=== PATIENT | female | born 1995 | race Caucasian/White ===

== ENCOUNTER → 2017-01-08 | Outpatient (REF) | payer OTHER ==
[~2017-01-08] MED LIST: LEVA750T PO; MAGICMW MT; MUCI600T34 PO; OSEL75CA PO; OSEL75CA2 PO; PROA1AER INH; ZOFR4TAB3 PO
== END ==
LOC: M SFHCLERA 19:31
PROVIDERS: ATTEND Nurse Practitioner Family
DX: R50.9 Fever, unspecified (principal)

== ENCOUNTER 2017-01-09 14:36 | Emergency (ER) | payer OTHER ==
[~2017-01-09] VITALS: Ht 170.2 cm; Wt 62.1 kg
[2017-01-09] MEDS ORDERED: KETOROLAC 30 MG/ML VIAL (J1885) IV ONE (16:15)
[2017-01-09] MEDS ORDERED: ACETAMINOPHEN 325 MG TAB PO ONE (16:15)
[2017-01-09] MEDS ORDERED: ONDANSETRON 4MG/2ML VIAL (J2405) IV ONE (16:15)
[2017-01-09 17:04] LABS: BASO % 0.2 % (0.0-1.0); EOS % 0.4 % (0.0-3.0); LARGE UNSTAINED CELL # 0.1 K/mm3 (0.0-0.4); LARGE UNSTAINED CELL % 1.4 % (0.0-4.0); LYMPH # 0.7 K/mm3 (1.5-6.5); LYMPH % 13.9 % (24.0-44.0); MEAN CORPUSCULAR HGB CONC 34.1 g/dl (32.0-36.5); MONO # 0.3 K/mm3 (0.0-0.8); MONO % 5.4 % (0.0-5.0); NEUTROPHILS # 3.8 K/mm3 (1.8-7.7); NEUTROPHILS % 78.7 % (36.0-66.0); PLATELET COUNT, AUTOMATED 179 k/mm3 (150-450); RED CELL DISTRIBUTION WIDTH 11.9 % (11.5-14.5); WHITE BLOOD COUNT 4.8 K/mm3 (4.0-10.0)
[2017-01-09 17:08] LABS: ALBUMIN 4.5 GM/DL (3.2-5.2); ALBUMIN/GLOBULIN RATIO 1.15 (1.00-1.93); ALKALINE PHOSPHATASE 68 U/L (45-117); ALT/SGPT 21 U/L (12-78); ANION GAP 8 MEQ/L (8-16); AST/SGOT 21 U/L (15-37); BILIRUBIN,DIRECT 0.1 MG/DL (0.0-0.2); BILIRUBIN,TOTAL 0.4 MG/DL (0.2-1.0); BLOOD UREA NITROGEN 10 MG/DL (7-18); CALCIUM LEVEL 9.1 MG/DL (8.5-10.1); CARBON DIOXIDE LEVEL 26 MEQ/L (21-32); CHLORIDE LEVEL 104 MEQ/L (98-107); CREATININE FOR GFR 0.95 MG/DL (0.55-1.02); GLOMERULAR FILTRATION RATE > 60.0 (>60); GLUCOSE, FASTING 96 MG/DL (70-105); POTASSIUM SERUM 3.8 MEQ/L (3.5-5.1); SODIUM LEVEL 138 MEQ/L (136-145); TOTAL PROTEIN 8.4 GM/DL (6.4-8.2)
[2017-01-09] MEDS ORDERED: NS 1,000 ML IV ONE ×2 (17:15→17:45)
[2017-01-09] MEDS ORDERED: OSELTAMIVIR PHOSPHATE 75 MG CAP (TAMIFLU) PO ONE (18:00)
--- NOTE | 2017-01-09 18:41 | ED PDOC ---
Provider Note visited with pt and family at this time. pt still receiving fluids. advised saline will finish, vitals will be taken again and she will be discharged. advised scripts for Tamiflu, Zofran and Magic Mouthwash. pt and family all in agreement of tx plan at this time. AYSHA MEYERS PA-C Jan 09, 2017 18:41
[2017-01-09 19:28] VITALS: BP 118/61
[2017-01-09] MEDS ORDERED: OSEL75CA PO (19:28)
[2017-01-09] MEDS ORDERED: MAGICMW MT (19:30)
[2017-01-09] MEDS ORDERED: ZOFR4TAB3 PO (19:30)
[2017-01-10] MEDS ORDERED: PROA1AER INH (15:28)
== END 2017-01-09 19:54 | disposition home or self-care (01) ==
LOC: M ED 16:52
DX: J10.1 Influenza due to other identified influenza virus with other respiratory manifestations (principal); I95.1 Orthostatic hypotension; Z88.0 Allergy status to penicillin
CPT/HCPCS: 36415; 80048; 80076; 81001; 81025; 83605; 85025; 86140; 87804; 87880; 96361; 96374; 96375; 99284; J1885; J2405

== ENCOUNTER 2017-01-10 12:06 | Inpatient (IN) | payer OTHER ==
[~2017-01-10 12:06] MED LIST changes: -LEVA750T PO; -MUCI600T34 PO; -OSEL75CA2 PO; -PROA1AER INH
[2017-01-10] MEDS ORDERED: KETOROLAC 30 MG/ML VIAL (J1885) IV ONE (12:45)
[2017-01-10] MEDS ORDERED: ONDANSETRON 4MG/2ML VIAL (J2405) IV ONE (12:45)
[2017-01-10] MEDS ORDERED: NS 1,000 ML IV ONE ×2 (13:15→19:45)
[2017-01-10] MEDS ORDERED: ALBUTEROL 90 MCG/ACT 8GM HFA INHALER INH ONE (13:30)
[2017-01-10] MEDS ORDERED: ACETAMINOPHEN 325 MG TAB PO ONE (13:30)
[2017-01-10 13:32] LABS: ALBUMIN 3.7 GM/DL (3.2-5.2); ALBUMIN/GLOBULIN RATIO 1.03 (1.00-1.93); ALKALINE PHOSPHATASE 50 U/L (45-117); ALT/SGPT 18 U/L (12-78); ANION GAP 10 MEQ/L (8-16); AST/SGOT 17 U/L (15-37); BILIRUBIN,DIRECT 0.1 MG/DL (0.0-0.2); BILIRUBIN,TOTAL 0.4 MG/DL (0.2-1.0); BLOOD UREA NITROGEN 6 MG/DL (7-18); CALCIUM LEVEL 8.3 MG/DL (8.5-10.1); CARBON DIOXIDE LEVEL 24 MEQ/L (21-32); CHLORIDE LEVEL 105 MEQ/L (98-107); CREATININE FOR GFR 0.77 MG/DL (0.55-1.02); GLOMERULAR FILTRATION RATE > 60.0 (>60); GLUCOSE, FASTING 117 MG/DL (70-105); POTASSIUM SERUM 3.7 MEQ/L (3.5-5.1); SODIUM LEVEL 139 MEQ/L (136-145); TOTAL PROTEIN 7.3 GM/DL (6.4-8.2)
[2017-01-10 13:34] LABS: MEAN CORPUSCULAR HEMOGLOBIN 29.5 pg (27.0-33.0); MEAN CORPUSCULAR HGB CONC 34.5 g/dl (32.0-36.5); MEAN CORPUSCULAR VOLUME 85.5 fl (80.0-96.0); PLATELET COUNT, AUTOMATED 122 k/mm3 (150-450); RED CELL DISTRIBUTION WIDTH 12.1 % (11.5-14.5); WHITE BLOOD COUNT 3.2 K/mm3 (4.0-10.0)
[2017-01-10 14:08] LABS: BANDS 1 % (< 11)
[2017-01-10] MEDS ORDERED: CEFTAROLINE FOSAMIL 600 MG in D5W MINI-BAG PLUS 50 ML IV ONE (14:30)
--- NOTE | 2017-01-10 14:36 | REP ---
CHEST, TWO VIEWS: Two views of the chest are performed. There is no comparison study. There is scattered infiltrate in the left lower lobe, most significant and dense in the inferior aspect of the left lower lobe. The right lung demonstrates no definite infiltrate. The heart is normal in size, and the mediastinal silhouette is unremarkable. IMPRESSION: Left lower lobe infiltrate. Signed by Ivan Callaway MD 01/10/2017 08:34 P
[2017-01-10] MEDS ORDERED: PROA1AER INH (15:28)
[2017-01-10] MEDS ORDERED: ALBUTEROL SULFATE 2.5 MG/0.5 ML INH NEB SOLN NEB PRN (15:30)
[2017-01-10] MEDS ORDERED: ACETAMINOPHEN TAB 650MG DOSE (2X325MG) PO PRN (15:30)
[2017-01-10] MEDS ORDERED: IBUPROFEN 400 MG TAB PO PRN (15:30)
[2017-01-10] MEDS ORDERED: ONDANSETRON 4MG/2ML VIAL (J2405) IV PRN ×2 (15:30)
[2017-01-10 17:00] VITALS: BP 95/55
--- NOTE | 2017-01-10 17:01 | HPEPDOC ---
Medical History and Physical Date of Admission Jan 10, 2017 at 15:55 History and Physical PRIMARY CARE PROVIDER: Jake Oscar at [facility] CHIEF COMPLAINT: Vomiting, influenza HISTORY OF PRESENT ILLNESS: Patient is a 21-year-old female with chief complaint of vomiting, acute influenza. Patient states that her symptoms began last Friday, began as dizziness. Friday night she developed a sore throat, migraine. On Friday she went to urgent care in [facility] and was told that she had an upper respiratory infection. She presented to emergency department due to feeling worse, having a very sore throat. In the ER she was diagnosed with influenza. Patient was discharged with prescriptions for Tamiflu, Zofran, Magic mouthwash. 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 Today she is complaining of fevers, chills, shortness of breath, difficulty breathing, body aches. ALLERGIES: Amoxicillin (rash) PAST MEDICAL HISTORY: Asthma PAST SURGICAL HISTORY: None SOCIAL HISTORY: Patient is a student at the [employer]. She denies any alcohol, tobacco, recreational drug use. SICK CONTACTS: Patient says many people throughout college have been sick CODE STATUS: Full code REVIEW OF SYSTEMS: Constitutional: Positive for fevers, chills, sweats HEENT: Head: Positive for headache, dizziness, lightheadedness. Eyes: Positive for blurry vision with standing. Ears: Positive for ear pain earlier. Nose: Positive for rhinorrhea, denies sinus pain, pressure, postnasal drip. Throat: Positive for sore throat, cough (productive for phlegm), difficulty swallowing Cardiovascular: Positive for chest tightness with deep breathing Respiratory: Positive for shortness of breath and difficulty breathing Gastrointestinal: Positive for centrally located abdominal pain : denies dysuria, hematuria Musculoskeletal: Positive for diffuse musculoskeletal aches and pains Neurological: denies numbness, tingling, paresthesias Lymphatics: denies palpable lymph nodes or swollen glands Integumentary: denies any cuts, rashes, bruises Endocrine: Positive for polydipsia PHYSICAL EXAMINATION: Vitals: Temperature 98.3, MAXIMUM TEMPERATURE 102.2, pulse 110, respiratory rate 16, blood pressure 132/62 (supine), 112/65 (sitting), 110/65 (standing), pulse ox 97% on room air General: Patient awake in stretcher, alert and oriented, verbal and able to answer questions appropriately. She does not appear to be in any acute distress HEENT: Head: normocephalic, atraumatic. Eyes: pupils equally reactive to light , conjunctiva are pink, sclera are nonicteric. Ears: tympanic membranes visible , light reflex present bilaterally without erythema. Throat: buccal mucosa is pink and moist with no lesions in the oropharynx Respiratory: clear to auscultation bilaterally with no wheezes, rales, or rhonchi. Cardiovascular: regular rate and rhythm, with no murmurs, rubs or gallops. Abdomen: soft, nontender, nondistended, no hepatosplenomegaly appreciated. Bowel sounds present. Extremities: 5/5 strength in upper and lower extremities bilaterally, no swelling in either lower extremity bilaterally Neurological: sensation intact and symmetrical in upper and lower extremities bilaterally Lymphatics: no palpable lymph nodes, swollen glands Integumentary: skin free from rashes, lesions, abrasions Vascular: pulses palpable and symmetrical in upper and lower extremities bilaterally LABORATORY DATA: CBC: White blood cells 3.2, hemoglobin and hematocrit 11.6, 33.6, platelets 122 Chemistry: Sodium 139, potassium 3.7, chloride 105, carbon dioxide 24, BUN 6, creatinine 0.77, glucose 117, calcium 8.3 Liver profile: AST 17, ALT 18, alkaline phosphatase 50, total protein 7.3, albumin 3.7 Lactic acid 1.3 MICROBOIOLOGY: Blood cultures 2 pending RADIOLOGY: Chest x-ray: Left lower lobe infiltrate ASSESSMENT: Patient is a 21-year-old female with community-acquired pneumonia superimposed on acute influenza. Patient will require admission and IV antibiotics for possible staph pneumonia PLAN: #1: Community-acquired pneumonia: With increased probability for staph pneumonia secondary to influenza B: Patient will be admitted to [facility] under care of Dr. Rojas. Order placed for Tylenol 650 mg by mouth every 48 when necessary , ketorolac 30 mg IV every 6 hours, Ceftaroline 600 mg IV every 12 hours, normal saline 500 mL bolus, normal saline at rate of 100 mL/hr, Zofran 4 mg IV every 4 hours when necessary. Check daily CBC, BMP #2: Influenza B: Order placed for Tamiflu 75 mg by mouth twice a day #3: Asthma: Order placed for albuterol sulfate nebulizer 4 times a day, every 2 hours when necessary, Solu-Medrol 60 mg IV every 12 hours #4: DVT prophylaxis: Order placed for Lovenox 40 mg subcutaneously daily I have both independently examined this patient as well as reviewed the dictated note. I have discussed in detail with the resident the findings and plan of treatment as documented in the residents note. I will continue to follow the patient and offer further guidance to the patients care as necessary during this hospital stay. Vital Signs Temperature 98.3, MAXIMUM TEMPERATURE 102.2, pulse 110, respiratory rate 16, blood pressure 132/62 (supine), 112/65 (sitting), 110/65 (standing), pulse ox 97 % on room air Home Medications Scheduled Guaifenesin (Mucinex) 600 Mg Tab 600 MG PO BID Levofloxacin Hemihydrate (Levaquin) 750 Mg Tab 750 MG PO DAILY Oseltamivir Phosphate (Oseltamivir Phosphate) 75 Mg Cap 75 MG PO BID Scheduled PRN Albuterol Sulfate (Proair Hfa) 108 Mcg/Act Aer 2 PUFF INH QID PRN PRN SHORTNESS OF BREATH Allergies Coded Allergies: Amoxicillin (Verified Allergy, Mild, rash, 01/09/17) GREY SPENCE DO Jan 10, 2017 17:01 MATTHEW ELLIOTT MD Jan 12, 2017 18:48
[2017-01-10] MEDS ORDERED: OSELTAMIVIR PHOSPHATE 75 MG CAP (TAMIFLU) PO ONE (17:30)
[2017-01-10 17:45] VITALS: BP 92/50
[2017-01-10 18:00] VITALS: BP_SYST 102; BP_SYST 106; BP_SYST 118; BP_DIAS 52; BP_DIAS 63; BP_DIAS 68
[2017-01-10] MEDS ORDERED: NS 500 ML IV ONE (18:00)
[2017-01-10] MEDS: methylPREDNISolone INJ 125 MG/2 ML VIAL (J2930) IV SCH (18:13)
[2017-01-10] MEDS: NS 1,000 ML IV SCH ×2 (18:13→22:02)
[2017-01-10 20:00] VITALS: BP 111/55
[2017-01-10] MEDS: KETOROLAC 30 MG/ML VIAL (J1885) IV SCH (20:00)
[2017-01-10] MEDS: ALBUTEROL SULFATE 2.5 MG/0.5 ML INH NEB SOLN INH SCH (20:29)
[2017-01-11] VITALS (7 sets, daily range): BP systolic 96–131; BP diastolic 50–72
[2017-01-11] MEDS: CEFTAROLINE FOSAMIL 600 MG in D5W MINI-BAG PLUS 50 ML IV SCH ×2 (02:47→15:04)
[2017-01-11] MEDS: KETOROLAC 30 MG/ML VIAL (J1885) IV SCH ×4 (02:47→20:18)
[2017-01-11] MEDS: NS 1,000 ML IV SCH (02:47)
[2017-01-11] MEDS: methylPREDNISolone INJ 125 MG/2 ML VIAL (J2930) IV SCH (06:14)
[2017-01-11 07:16] LABS: ANION GAP 7 MEQ/L (8-16); BLOOD UREA NITROGEN 4 MG/DL (7-18); CALCIUM LEVEL 8.4 MG/DL (8.5-10.1); CARBON DIOXIDE LEVEL 26 MEQ/L (21-32); CHLORIDE LEVEL 109 MEQ/L (98-107); CREATININE FOR GFR 0.67 MG/DL (0.55-1.02); GLOMERULAR FILTRATION RATE > 60.0 (>60); GLUCOSE, FASTING 118 MG/DL (70-105); POTASSIUM SERUM 3.8 MEQ/L (3.5-5.1); SODIUM LEVEL 142 MEQ/L (136-145)
[2017-01-11 07:25] LABS: MEAN CORPUSCULAR HEMOGLOBIN 29.7 pg (27.0-33.0); MEAN CORPUSCULAR VOLUME 87.6 fl (80.0-96.0); RED CELL DISTRIBUTION WIDTH 12.2 % (11.5-14.5); WHITE BLOOD COUNT 9.1 K/mm3 (4.0-10.0)
[2017-01-11] MEDS: ENOXAPARIN 40 MG/0.4 ML SYRINGE (J1650) SC SCH (08:30)
[2017-01-11] MEDS: OSELTAMIVIR PHOSPHATE 75 MG CAP (TAMIFLU) PO SCH ×2 (08:31→20:18)
[2017-01-11] MEDS: ALBUTEROL SULFATE 2.5 MG/0.5 ML INH NEB SOLN INH SCH ×4 (08:53→21:52)
[2017-01-11 10:36] LABS: CONTROL LINE HCG INT CTR LINE PRESENT
[2017-01-11] MEDS ORDERED: methylPREDNISolone INJ 40 MG/1 ML VIAL (J2920) IV SCH (18:00)
[2017-01-11] MEDS: methylPREDNISolone INJ 40 MG/1 ML VIAL (J2920) IV SCH (18:43)
--- NOTE | 2017-01-11 19:14 | IPN ---
DATE: 01/11/2017 SUBJECTIVE: Patient was admitted yesterday for left lower lobe pneumonia and influenza. Reported much improved respirations, still has cough productive of yellow phlegm. Denies any fevers or chills overnight. Denies any chest pain, pressure or discomfort. VITAL SIGNS: Temperature 98.3, pulse 96, respirations 16, blood pressure 96/50, pulse oximetry 97% on room air. LABORATORY DATA: WBC 9, hemoglobin and hematocrit 11.1 over 32.8, platelets 158. Chemistry: Sodium 142, potassium 3.8, chloride 109, bicarbonate 26, BUN 4, creatinine 0.67, C-reactive protein 15.8. PHYSICAL EXAMINATION: GENERAL: The patient alert and oriented times three in no acute distress. HEENT: Normocephalic, atraumatic. PULMONARY: Left-sided rhonchi. Mild expiratory wheeze. CARDIAC: Regular rate and rhythm. Normal S1, S2. ABDOMEN: Soft, nontender, nondistended. EXTREMITIES: No clubbing, cyanosis or edema. ASSESSMENT AND PLAN: This is a 21-year-old female patient with underlying medical history of asthma, admitted with acute superimposed community-acquired left lower lobe pneumonia superimposing acute influenza with asthma exacerbation. 1. Left lower lobe pneumonia probably associated secondary to influenza B. Acetaminophen. Patient was septic initially with fever and tachycardia. Started on Teflaro. Followup cultures. Intravenous (IV) fluids have been given. The patient clinically has improved. Followup C-reactive protein. 2. Influenza B. Continue Tamiflu twice a day. Droplet precaution. 3. Asthma exacerbation. Nebulizer treatment. Solu-Medrol, taper as tolerated. Patient respiratory sounds have improved a lot. 4. Deep venous thrombosis (DVT) prophylaxis. Lovenox subcutaneous. DISPOSITION: Pending clinical improvement, likely discharge in the next 24-48 hours.
[2017-01-12] VITALS: BP_SYST 110; BP_SYST 112; BP_SYST 117; BP_DIAS 58; BP_DIAS 63; BP_DIAS 66
[2017-01-12] MEDS: CEFTAROLINE FOSAMIL 600 MG in D5W MINI-BAG PLUS 50 ML IV SCH (02:27)
[2017-01-12] MEDS: KETOROLAC 30 MG/ML VIAL (J1885) IV SCH ×2 (02:27→08:23)
[2017-01-12 04:00] VITALS: BP_SYST 108; BP_SYST 115; BP_DIAS 51; BP_DIAS 57; BP_DIAS 61
[2017-01-12] MEDS: methylPREDNISolone INJ 40 MG/1 ML VIAL (J2920) IV SCH (05:37)
[2017-01-12 06:54] LABS: MEAN CORPUSCULAR HEMOGLOBIN 29.3 pg (27.0-33.0); MEAN CORPUSCULAR HGB CONC 34.3 g/dl (32.0-36.5); MEAN CORPUSCULAR VOLUME 85.4 fl (80.0-96.0); RED CELL DISTRIBUTION WIDTH 12.2 % (11.5-14.5); WHITE BLOOD COUNT 7.3 K/mm3 (4.0-10.0)
[2017-01-12 07:14] LABS: ANION GAP 8 MEQ/L (8-16); BLOOD UREA NITROGEN 7 MG/DL (7-18); CALCIUM LEVEL 8.5 MG/DL (8.5-10.1); CARBON DIOXIDE LEVEL 28 MEQ/L (21-32); CHLORIDE LEVEL 108 MEQ/L (98-107); CREATININE FOR GFR 0.61 MG/DL (0.55-1.02); GLOMERULAR FILTRATION RATE > 60.0 (>60); GLUCOSE, FASTING 135 MG/DL (70-105); POTASSIUM SERUM 3.6 MEQ/L (3.5-5.1); SODIUM LEVEL 144 MEQ/L (136-145)
[2017-01-12] MEDS: ALBUTEROL SULFATE 2.5 MG/0.5 ML INH NEB SOLN INH SCH ×2 (07:23→11:46)
[2017-01-12 08:00] VITALS: BP 128/60
[2017-01-12] MEDS ORDERED: POTASSIUM CHLORIDE 10 MEQ SR TABLET PO ONE (08:00)
[2017-01-12] MEDS: ENOXAPARIN 40 MG/0.4 ML SYRINGE (J1650) SC SCH (08:21)
[2017-01-12] MEDS: OSELTAMIVIR PHOSPHATE 75 MG CAP (TAMIFLU) PO SCH (08:22)
[2017-01-12] MEDS ORDERED: LEVA750T PO (11:12)
[2017-01-12] MEDS ORDERED: OSEL75CA2 PO (11:12)
[2017-01-12] MEDS ORDERED: MUCI600T34 PO (11:12)
--- NOTE | 2017-01-14 06:00 | DSES ---
DATE OF ADMISSION: 01/10/2017 DATE OF DISCHARGE: 01/12/2017 PRIMARY CARE PROVIDER: [facility]. Identified FINAL DIAGNOSES: 1. Influenza and left lower lobe community-acquired bacterial pneumonia. 2. Asthma exacerbation. HISTORY OF PRESENT ILLNESS: This is a 21-year-old female patient with underlying medical history of asthma presented with vomiting. Was diagnosed recently with acute influenza. Had not started medication yet. Symptom began Friday before admission with dizziness, sore throat, migraine. On Friday, she went to Urgent Care in [facility] and was told that she has upper respiratory infection. Presented to the emergency room on due to feeling worse and sore throat. Main issue diagnosed was influenza. Was prescribed Tamiflu but did not take it and Zofran, Magic Mouthwash. 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 Was found tachycardic, shortness of breath, difficulty breathing and diffuse body ache. HOSPITAL COURSE: Patient was admitted to the hospital. X-ray shows left lower lobe pneumonia. Blood cultures were sent. Patient was initially orthostatic hypotensive. Started on intravenous (IV) fluids. Orthostatic vital sign was found and repeated and was negative. Patient was also started on IV antibiotics. Mayuri cultures were sent. C-reactive protein shows improvement. Patient initially was having left-sided rhonchi. Currently improved as well. Only symptom right now is cough. Patient is also continued on Tamiflu. Solu-Medrol steroid has also been given initially because patient wheezes and currently improved. As of right now, patient is tolerating oral, in no acute distress, comfortable with only a mild cough. VITAL SIGNS: Temperature 97.7, pulse 94, respiration 18, blood pressure 120/60, pulse oximetry 97% on room air. LABORATORY DATA: WBC 7.3, hemoglobin and hematocrit 10.3/30.1, platelets 149. Chemistry: Sodium 144, potassium 3.6, chloride 108, bicarbonate 28, BUN 7, creatinine 0.6, C-reactive protein was 15.8 to 8.47. DISCHARGE MEDICATION: - Mucinex 600 mg by mouth twice a day - Levaquin 750 mg by mouth for six more days - Tamiflu 75 mg by mouth twice a day for five more days - Patient's home medication ProAir inhalation four times a day as needed will continue. DISCHARGE INSTRUCTION: Patient instructed to followup primary care provider in 7 days for the resolution of her symptoms and return to the hospital if symptoms worsen. MEGAN
== END 2017-01-12 12:15 | disposition home or self-care (01) | DRG 139 ==
LOC: EDBD 12:06 → M ED 13:09 → M ED INP 15:55 → M PED 17:03
PROVIDERS: ADMIT Internal Medicine; ATTEND Hospitalist
DX: J11.08 Influenza due to unidentified influenza virus with specified pneumonia (principal); J45.901 Unspecified asthma with (acute) exacerbation; Z79.899 Other long term (current) drug therapy; Z88.0 Allergy status to penicillin

== ENCOUNTER → 2018-01-27 | Outpatient (CLI) | payer OTHER | LOC: M WUC 10:39 | DX: R07.89 Other chest pain (principal) ==